=== PATIENT | female | born 1985 | race Two or more races ===

== ENCOUNTER 2018-04-12 04:23 | Inpatient (IN) | payer OTHER ==
[~2018-04-12] VITALS: Ht 160 cm; Wt 86.4 kg
[2018-04-12] VITALS (19 sets, daily range): BP systolic 110–138; BP diastolic 61–86
[2018-04-12] MEDS ORDERED: PRENATAL TABLE1 EAC3 PO (05:41)
[2018-04-12 05:46] LABS: AMPHETAMINE NEGATIVE (500 ng/mL); BARBITURATES NEGATIVE (200 ng/mL); BENZODIAZEPINES NEGATIVE (150 ng/mL); BUPRENORPHINE NEGATIVE (10 ng/mL); COCAINE NEGATIVE (150 ng/mL); METHADONE NEGATIVE (200 ng/mL); METHAMPHETAMINE NEGATIVE (500 ng/mL); OPIATES (MORPHINE) NEGATIVE (100 ng/mL); OXYCODONE NEGATIVE (100 ng/mL); PHENCYCLIDINE NEGATIVE (25 ng/mL); PROPOXYPHENE NEGATIVE (300 ng/mL); THC CANNABINOIDS NEGATIVE (50 ng/mL); TRICYCLIC ANTIDEPRESSANTS NEGATIVE (300 ng/mL)
[2018-04-12 05:48] LABS: BASOPHIL (%) 0.3 % (0-1); EOSINOPHIL COUNT 0.1 K/uL (0-0.3); HEMATOCRIT 36.5 % (36.0-46.0); HEMOGLOBIN 12.3 G/DL (11.9-15.5); IMMATURE GRANULOCYTE (%) 0.5 % (0.0-0.7); LYMPHOCYTE (%) 25.3 % (15-42); LYMPHOCYTE COUNT 2.2 K/uL (1.0-2.8); MCHC 33.7 G/DL (30.0-36.0); MCV 91.9 FL (83-99); MONOCYTE (%) 7.6 % (3-12); MONOCYTE COUNT 0.7 K/uL (0-0.8); NEUTROPHIL (%) 65.3 % (45-76); NEUTROPHIL COUNT 5.7 K/uL (1.8-6.4); PLATELET COUNT 109 K/uL (156-360); RBC DIS.WIDTH-CV 12.5 % (11.8-14.6); RBC DIS.WIDTH-SD 41.8 % (39-53); RED BLOOD COUNT 3.97 M/uL (3.80-5.20); WHITE BLOOD COUNT 8.7 K/uL (4.1-10.2)
[2018-04-12 05:59] LABS: SOURCE URINE
[2018-04-12 09:43] LABS: TREPONEMA ANTIBODY NEGATIVE (NEGATIVE)
[2018-04-12] MEDS ORDERED: IBUPROFEN800 MG PO (12:09)
[2018-04-13 07:01] VITALS: BP 123/64
[2018-04-13 14:37] VITALS: BP 129/76
[2018-04-13 22:43] VITALS: BP 128/76
[2018-04-14 07:58] VITALS: BP 136/79
[2018-04-14] MEDS ORDERED: IBUPROFEN800 MG PO (14:29)
[2018-04-14 14:55] VITALS: BP 146/84
[2018-04-14 16:07] VITALS: BP 110/70
[2018-04-15 12:24] LABS: CHLAMYDIA TRACHOMATIS INVALID; NEISSERIA GONORRHOEAE INVALID
== END 2018-04-14 17:10 | disposition home or self-care (01) | DRG 775 ==
LOC: LDRP-OP 04:23 → 2WEST 04:24
PROVIDERS: Nurse Practitioner
PROC: 3E0R3BZ Introduction of Anesthetic Agent into Spinal Canal, Percutaneous Approach (ICD-10-PCS; principal; 2018-04-12)
PROC: 10907ZC Drainage of Amniotic Fluid, Therapeutic from Products of Conception, Via Natural or Artificial Opening (ICD-10-PCS; principal; 2018-04-12)
PROC: 0HQ9XZZ Repair Perineum Skin, External Approach (ICD-10-PCS; principal; 2018-04-12)
PROC: 00HU33Z Insertion of Infusion Device into Spinal Canal, Percutaneous Approach (ICD-10-PCS; principal; 2018-04-12)
PROC: 10E0XZZ Delivery of Products of Conception, External Approach (ICD-10-PCS; principal; 2018-04-12)
DX: O70.0 First degree perineal laceration during delivery (principal); Z37.0 Single live birth; Z3A.40 40 weeks gestation of pregnancy
CPT/HCPCS: 85025; 86780; 87491; 87591; C1755; J3010; J7120